=== PATIENT | female | born 1975 | race Caucasian/White ===

== ENCOUNTER 2019-08-24 18:07 | Emergency (ER) | payer OTHER ==
[2019-08-24 18:15] VITALS: BP 141/95
[2019-08-24] MEDS ORDERED: HYDROcod/ACET 5/325 Prepack 4 PO STA (18:31)
[2019-08-24] MEDS ORDERED: ONDANSETRON ODT 4 MG Prepack 2 TL STA (18:31)
[2019-08-24] MEDS ORDERED: HYDROcod/ACETAM 5/325 MG TABLET PO STA (18:31)
--- NOTE | 2019-08-24 18:33 | ED Physician Documentation ---
PD HPI LOWER EXT INJURY - Stated complaint Stated Complaint: LT ANKLE INJURY - Chief complaint Chief Complaint: Trauma Ext - History obtained from History obtained from: Patient - History of Present Illness PD HPI LOW EXT INJURY LOCATION: Left Type of injury: Fall Timing - onset: Today (Her left leg slid on no grassy slope and inverted and popped. Severe pain there. No other injuries.) Review of Systems Constitutional: reports: Reviewed and negative Throat: reports: Reviewed and negative Cardiac: reports: Reviewed and negative Respiratory: reports: Reviewed and negative PD PAST MEDICAL HISTORY - Present Medications Home Medications: Ambulatory Orders Medication Instructions Recorded Confirmed Hydrocodone/Acetaminophen 1 - 2 each PO Q6H PRN #14 tablet 08/24/19 [Hydrocodon-Acetaminophen 5-325] Ondansetron Odt [Zofran] 4 mg TL Q6H PRN #10 tablet 08/24/19 - Allergies Allergies/Adverse Reactions: Allergies Allergy/AdvReac Type Severity Reaction Status Date / Time No Known Drug Allergies Allergy Verified 08/24/19 18:15 PD ED PE NORMAL - Vitals Vital signs reviewed: Yes - General General: Alert and oriented X 3, No acute distress - Abdomen Abdomen: Soft, Non tender - Back Back: No CVA TTP, No spinal TTP - Derm Derm: Normal color, Warm and dry - Neuro Neuro: Alert and oriented X 3, Normal speech Results - Vitals Vitals: Vital Signs - 24 hr 08/24/19 18:12 Temperature 36.9 C Heart Rate 109 H Respiratory 18 Rate Blood Pressure 141/95 H O2 Saturation 98 Oxygen O2 Source Room air - Rads (name of study) L ankle Radiology: EMP read contemporaneously (Angulated distal fibular fracture well above the ankle mortise with significant syndesmotic widening.), See rad report Procedures - Splint (location) LLE Splint applied by: Tech Type of splint: Fiberglass, Short leg, Posterior Other: Patient tolerated well, No complications, Neurovascular intact PD MEDICAL DECISION MAKING - ED course ED course: They live in [place] and preferred to have operative fixation near home. She was splinted and placed up on crutches. Given pain medications. She understands the need for follow-up and elevation. Also nonweightbearing status. Departure - Departure Disposition: 01 Home, Self Care Clinical Impression: Fracture of distal end of fibula Qualifiers: Encounter type: initial encounter Fracture type: closed Fracture morphology: other fracture Laterality: left Qualified Code(s): S82.832A - Other fracture of upper and lower end of left fibula, initial encounter for closed fracture Syndesmotic disruption of left ankle Qualifiers: Encounter type: initial encounter Qualified Code(s): S93.432A - Sprain of tibiofibular ligament of left ankle, initial encounter Condition: Good Record reviewed to determine appropriate education?: Yes Instructions: ED Fx Lower Ext Prescriptions: Hydrocodone/Acetaminophen [Hydrocodon-Acetaminophen 5-325] 1 - 2 each PO Q6H PRN #14 tablet PRN Reason: pain Ondansetron Odt [Zofran] 4 mg TL Q6H PRN #10 tablet PRN Reason: Nausea / Vomiting Comments: Follow-up with an orthopedist near home, call tomorrow for an appointment. Elevate is much as possible. Do not get the splint wet or remove it. Present to your local ER for severe pain or numbness of the foot. Do not drink or drive while taking narcotic pain medication. Note that many narcotic pain relievers also contain Tylenol/acetaminophen. Please ensure that your total dose of acetaminophen from all sources does not exceed 3 g (3000 mg) per day. You may get constipated while on this medication. Take a stool softener such as Colace twice a day while you are on it. Also add an [id number] laxative such as senna or MiraLAX on any day that you do not have a bowel movement. If you received a narcotic pain medication or sedative while in the emergency department, do not drive for the next 24 hours. Discharge Date/Time: 08/24/19 19:12
[2019-08-24] MEDS: ONDANSETRON ODT 4 MG TABLET TL STA ×2 (18:37→18:38)
--- NOTE | 2019-08-24 18:56 | XRAY Report ---
PROCEDURE: Ankle 3 View LT INDICATIONS: L ankle injury TECHNIQUE: 3 views of the ankle were acquired. COMPARISON: None FINDINGS: Bones: Distal fibular fracture involving the syndesmotic region. Disruption of ankle mortise. Widenin g of the distance between the fibula and distal tibia consistent with torn syndesmosis. Widening of t he distance between the medial malleolus and the talus. No suspicious bony lesions. Soft tissues: No tibiotalar joint effusion. Achilles tendon appears normal. IMPRESSION: Distal fibular shaft fracture, torn syndesmosis, disruption of ankle mortise, torn media l ligaments. Reviewed by: Sourav Dinero MD on 08/24/2019 6:55 PM PDT Approved by: Sourav Dinero MD on 08/24/2019 6:55 PM PDT Station ID: [id number]
== END 2019-08-24 19:12 | disposition home or self-care (01) ==
LOC: ED 18:07
DX: S82.832A Other fracture of upper and lower end of left fibula, initial encounter for closed fracture (principal); S93.432A Sprain of tibiofibular ligament of left ankle, initial encounter; S93.492A Sprain of other ligament of left ankle, initial encounter; W17.89XA Other fall from one level to another, initial encounter
CPT/HCPCS: 73610; 99283; 99284; A9270; Q0162